=== PATIENT | female | born 2000 | race Caucasian/White ===

== ENCOUNTER 2019-03-30 01:17 | Inpatient (IN) | payer MEDICAID ==
[~2019-03-30] VITALS: Ht 175.3 cm; Wt 84.2 kg
[2019-03-30] MEDS ORDERED: MAGNESIUM SULFATE PMX 2GM/50ML 50 ML ONE (01:40)
[2019-03-30] MEDS ORDERED: methylPREDNISolone SOD SUCC 125 MG/2 ML ONE (01:40)
[2019-03-30] MEDS ORDERED: ALBUTEROL/IPRATROPIUM 2.5MG/0.5MG, 3 ML ONE ×2 (01:43→06:24)
[2019-03-30] MEDS ORDERED: SODIUM CHLORIDE FLUSH 10ML SYR IVF ONE (02:00)
[2019-03-30] MEDS ORDERED: MAGNESIUM SULFATE PMX 2GM/50ML 50 ML IVPB ONE (02:00)
[2019-03-30] MEDS ORDERED: methylPREDNISolone SOD SUCC 125 MG/2 ML IV ONE (02:00)
[2019-03-30] MEDS ORDERED: ALBUTEROL/IPRATROPIUM 2.5MG/0.5MG, 3 ML NPPB PRN ×2 (02:00→04:00)
[2019-03-30 02:52] LABS: BASOPHILS # (AUTO) 0.04 x10^3/uL (0-0.3); BASOPHILS % (AUTO) 0 % (0-1); EOSINOPHILS % (AUTO) 11 % (1-7); LYMPHOCYTES # (AUTO) 1.69 x10^3/uL (1-6.1); LYMPHOCYTES % (AUTO) 15 % (22-44); MD NO; MEAN CORPUSCULAR HEMOGLOBIN 29.5 pg (27.0-34.8); MEAN CORPUSCULAR HGB CONC 32.4 g/dL (32.4-35.8); MEAN CORPUSCULAR VOLUME 91.1 fL (80-100); MONOCYTES # (AUTO) 0.74 x10^3/uL (0-1.4); MONOCYTES % (AUTO) 7 % (2-9); NEUTROPHILS # (AUTO) 7.51 x10^3/uL (1.8-8.0); NEUTROPHILS % (AUTO) 67 % (42-75); PLATELET COUNT 299 x10^3/uL (130-400); RED BLOOD COUNT 5.22 x10^6/uL (3.82-5.3); RED CELL DISTRIBUTION WIDTH 15.3 % (9.6-15.2)
[2019-03-30] MEDS ORDERED: ACETAMINOPHEN 325 MG TABLET PO PRN (03:00)
[2019-03-30] MEDS ORDERED: ONDANSETRON 2MG/ML, 2ML IVPush PRN (03:00)
[2019-03-30 03:02] LABS: ANION GAP 6 mmol/L (5-15); CALCIUM 9.2 mg/dL (8.5-10.1); CHLORIDE 109 mmol/L (98-107); CREATININE 0.81 mg/dL (0.55-1.02)
[2019-03-30] MEDS ORDERED: AZITHROMYCIN 500 MG in SODIUM CHLORIDE 0.9% 250 ML IV SCH ×2 (03:30→09:00)
--- NOTE | 2019-03-30 03:39 | NUR ---
pt provided hospital bed
[2019-03-30] MEDS ORDERED: ALBUTEROL/IPRATROPIUM 2.5MG/0.5MG, 3 ML NPPB SCH ×2 (04:00→07:00)
[2019-03-30 04:05] LABS: RAPID INFLUENZA A Negative (Negative); RAPID INFLUENZA B Negative (Negative)
--- NOTE | 2019-03-30 05:50 | NUR ---
breakfast meal tray ordered
[2019-03-30] MEDS: ALBUTEROL SULFATE 2.5 MG/3 ML NPPB SCH ×5 (07:00→22:35)
--- NOTE | 2019-03-30 07:00 | NUR ---
REPORT FROM ROSALINA LAMBERT, ASSUME CARE OF PT AT THIS TIME.
--- NOTE | 2019-03-30 07:15 | NUR ---
PT ASSISTED UP TO BSC. PT BACK TO BED, ALL ROOM MONITORING IN PLACE. LIGHTS TURNED OFF PER PT REQUEST, WARM BLANKET PROVIDED.
[2019-03-30 08:53] VITALS: BP 112/70
[2019-03-30] MEDS ORDERED: MAGNESIUM SULFATE/D5W 100 ML IV ONE (11:30)
[2019-03-30] MEDS: methylPREDNISolone SOD SUCC 125 MG/2 ML IVPush SCH ×3 (11:36→22:56)
[2019-03-30] MEDS: LORazepam 2 MG/ML, 1ML IVPush PRN ×2 (11:36→22:57)
[2019-03-30 12:32] VITALS: BP 111/72
[2019-03-30] MEDS ORDERED: MELATONIN 5 MG TABLET ONE (20:04)
[2019-03-30 20:54] VITALS: BP 96/59
[2019-03-30] MEDS ORDERED: MELATONIN 5 MG TABLET PO SCH (21:00)
[2019-03-31] MEDS: ALBUTEROL SULFATE 2.5 MG/3 ML NPPB SCH ×4 (02:38→10:34)
[2019-03-31 02:40] VITALS: BP 98/57
[2019-03-31] MEDS ORDERED: AZITHROMYCIN 500 MG in SODIUM CHLORIDE 0.9% 250 ML IV SCH (04:00)
[2019-03-31] MEDS: methylPREDNISolone SOD SUCC 125 MG/2 ML IVPush SCH ×2 (04:49→12:03)
[2019-03-31] MEDS: LORazepam 2 MG/ML, 1ML IVPush PRN (04:49)
[2019-03-31 05:39] LABS: ANION GAP 8 mmol/L (5-15); CHLORIDE 109 mmol/L (98-107)
[2019-03-31 05:40] LABS: CREATININE 0.84 mg/dL (0.55-1.02)
[2019-03-31 05:50] LABS: BASOPHILS # (AUTO) 0.01 x10^3/uL (0-0.3); BASOPHILS % (AUTO) 0 % (0-1); EOSINOPHILS % (AUTO) 0 % (1-7); LYMPHOCYTES # (AUTO) 0.89 x10^3/uL (1-6.1); LYMPHOCYTES % (AUTO) 6 % (22-44); MD NO; MEAN CORPUSCULAR HEMOGLOBIN 29.9 pg (27.0-34.8); MEAN CORPUSCULAR HGB CONC 32.9 g/dL (32.4-35.8); MEAN CORPUSCULAR VOLUME 90.8 fL (80-100); MONOCYTES # (AUTO) 0.29 x10^3/uL (0-1.4); MONOCYTES % (AUTO) 2 % (2-9); NEUTROPHILS # (AUTO) 14.13 x10^3/uL (1.8-8.0); NEUTROPHILS % (AUTO) 92 % (42-75); PLATELET COUNT 306 x10^3/uL (130-400); RED BLOOD COUNT 4.89 x10^6/uL (3.82-5.3); RED CELL DISTRIBUTION WIDTH 15.8 % (9.6-15.2)
[2019-03-31 09:00] VITALS: BP 94/52
[2019-03-31 12:42] VITALS: BP 117/70
== END 2019-03-31 14:12 | disposition left against medical advice (07) | DRG 133 ==
LOC: ED 02:17 → EDIP 03:07 → 4EST 08:52
PROVIDERS: ADMIT Internal Medicine; ATTEND Family Medicine
DX: J96.01 Acute respiratory failure with hypoxia (principal); J45.52 Severe persistent asthma with status asthmaticus; J06.9 Acute upper respiratory infection, unspecified; R00.0 Tachycardia, unspecified; Z88.1 Allergy status to other antibiotic agents; Z88.0 Allergy status to penicillin
CPT/HCPCS: 36415; 71045; 80048; 84145; 85025; 87400; 93005; 94640; 99291; G0378; J0456; J7613; J7620; J2060; J2930; J3475; J7050; J7512